=== PATIENT | female | born 1990 | race Caucasian/White ===

== ENCOUNTER 2018-07-11 12:47 | Day surgery (SDC) | payer OTHER ==
[~2018-07-11 12:47] MED LIST: ANCEF/STERILE WATER 2 GM/20 ML 2 GM/20 ML SYRINGE IV NR; LACTATED RINGERS 1,000 ML IV SCH
--- NOTE | 2018-07-11 13:24 | Anesthesia Consultation ---
Anesthesia Consult and Med Hx Date of service: 07/11/18 - Airway Anesthetic Teeth Evaluation: Good (uneven teeth) ROM Head & Neck: Adequate Mental/Hyoid Distance: Adequate Mallampati Class: Class II Intubation Access Assessment: Probably Good - Pre-Operative Health Status ASA Pre-Surgery Classification: ASA2 Proposed Anesthetic Plan: MAC - Central Nervous System Hx Psychiatric Problems: Yes - Gastrointestinal Hx Gastroesophageal Reflux Disease: Yes - Other Systems Hx Alcohol Use: No Hx Substance Use: No Hx Cancer: No
--- NOTE | 2018-07-11 13:24 | Anesthesia Day of Surgery ---
Anesthesia Day of Surgery - Day of Surgery Patient Examined: Yes Patient H&P Reviewed: Yes Patient is NPO: Yes
[2018-07-11] MEDS ORDERED: VERSED ONE ×2 (13:42→14:00)
[2018-07-11] MEDS ORDERED: MARCAINE-EPI 0.5%-1:200,000 INFILTRATI ONE (13:52)
[2018-07-11] MEDS ORDERED: XYLOCAINE 1% 20 mL ONE (13:52)
[2018-07-11] MEDS ORDERED: VERSED IV NR (14:00)
[2018-07-11] MEDS ORDERED: DILAUDID ONE (14:00)
[2018-07-11] MEDS ORDERED: DIPRIVAN 10 MG/ML IV ONE (14:00)
[2018-07-11] MEDS ORDERED: PEPCID IV SCH (14:00)
[2018-07-11] MEDS ORDERED: MARCAINE-EPI/PF 0.5%-1:200,000 INFILTRATI ONE (14:10)
[2018-07-11] MEDS ORDERED: XYLOCAINE 1% 20 mL INFILTRATI ONE (14:10)
[2018-07-11] MEDS ORDERED: XYLOCAINE MPF 2% ONE (14:41)
--- NOTE | 2018-07-11 15:05 | Short Stay Summary ---
Short Stay Documentation Date of service: 07/11/18 - History H&P: obtained from office - Allergies and Medications Current Medications: Allergies No Known Allergies Allergy (Verified 07/10/18 11:19) Home Medications Medication Instructions Recorded Confirmed Last Taken Type No Known Home Medications [No 07/10/18 07/10/18 Unknown History Reported Home Medications] Active Medications Famotidine (Pepcid) 20 mg IV PREOP ALEXIA Stop: 07/11/18 23:00 Last Admin: 07/11/18 13:42 Dose: 20 mg Documented by: Cefazolin Sodium (Ancef/Sterile Water 2 Gm/20 Ml) 2 gm in 20 mls @ 80 mls/hr IV PREOP NR; Protocol Stop: 07/11/18 23:59 Lactated Ringer's (Lactated Ringers) 1,000 mls @ 75 mls/hr IV DIRECT ALEXIA Last Admin: 07/11/18 13:42 Dose: 75 mls/hr Documented by: Midazolam HCl (Versed) 2 mg IV PREOP NR Stop: 07/11/18 23:59 Last Admin: 07/11/18 13:41 Dose: 2 mg Documented by: - Physical exam General appearance: no acute distress Lungs: Normal air movement Neurological: Normal speech - Brief post op/procedure progress note Date of procedure: 07/11/18 (Dictation:[id number]) Pre-op diagnosis: left hip skin mass Post-op diagnosis: same Procedure: Excision of left hip skin mass Anesthesia: MAC Findings: 1x1.2x1.5cm superficial mass - in subcutaneous tissue and attached to dermis. Surgeon: SALO SCHAFER Estimated blood loss: minimal Pathology: list (superficial skin mass) Specimen disposition: to lab Condition: stable - Disposition Condition at discharge: Stable Disposition: DC-01 TO HOME OR SELFCARE Short Stay Discharge Plan Activity: other (no strenuous activity or exercise for 1 week) Diet: regular Wound: open to air, keep clean and dry, other (apply ice pack for 10-15min/4-5 times a day. May shower tomorrow. Pat dry wound.) Special Instructions: no heavy lifting Additional Instructions: NO STRENUOUS ACTIVITY OR EXERCISE FOR ONE WEEK. WOUND:OPEN TO AIR, KEEP CLEAN AND DRY.(APPLY ICE PACK FOR 10-15 MINUTES/4-5 TIMES A A-DAY. MAY SHOWER TOMORROW, PAT DRY WOUND. DO NOT RUB OR SCRUB INCISION. NO BATH, NO POOL OR LAKES. NO HEAVY LIFTING. Follow up with: IVANA COTE MD [Primary Care Provider] - 7 Days SALO SCHAFER MD [Staff Physician] - 14 Days Forms: Outpatient Surgery DC Inst. Prescriptions: HYDROcodone/APAP 5-325 [Concan 5/325] 1 each PO Q6HR PRN #10 tablet PRN Reason: Pain
[2018-07-11 15:32] VITALS: BP 112/61
--- NOTE | 2018-07-11 16:06 | Operative Report ---
PREOPERATIVE DIAGNOSIS: Left hip skin mass. POSTOPERATIVE DIAGNOSIS: Left hip skin mass. PROCEDURE: Excision of left hip skin mass. ATTENDING PHYSICIAN: Randa Hollis MD ANESTHESIA: Local MAC. ESTIMATED BLOOD LOSS: Minimal. FINDINGS: 1 x 1.2 x 1.5 cm skin mass in the subcutaneous tissue that was attached to the overlying dermis. SPECIMEN: The above-mentioned mass. DRAINS: None. COMPLICATIONS: None. DISPOSITION: Stable, transferred to Recovery Room. INDICATIONS: This is a 27-year-old female who presents for evaluation of a relatively new mass in her left hip that was much larger prior to her presentation in the clinic. It does cause her discomfort, but has decreased in size. It was red at one time and now has a more purplish appearance. Patient is worried about the potential that this could be something bad. The patient was assessed to be in need for excision. Procedure, risks, benefits were explained to the patient. Risks included but were not limited to infection, bleeding, pain, injury to surrounding structures, possible need for further procedures in the future. The patient understood and consented. OPERATIVE NOTE: The patient was brought to the operating room and placed on the table in supine position. After adequate sedation was established, the patient was placed in right lateral decubitus position. SCDs were in place. Sterile prep and drape was performed. Timeout was called. Based on the lines of skin tension, I planned an oblique incision to be parallel with the lines of skin tension. We injected the surrounding tissue with 0.5% Marcaine with epinephrine and 1% lidocaine. The skin was carefully incised down to the mass to avoid disruption of the mass. I was able to dissect out around the mass it as I had already marked out the overall orientation of the mass. We were essentially able to remove it intact. There was a small thin layer of what I believe to be a cyst attached to the overlying dermis. This was probably 2 mm at the most in its longest dimension. I cauterized those areas in case it was some portion of the cystic wall. The rest of tissue was completely normal. So no other evidence of any abnormal changes. Specimen was completely excised, measured and passed off table in sterile fashion with good hemostasis in the wound as mentioned any portion of the overlying dermis that appeared to maybe have a thin layer of the cystic wall was cauterized, 3-0 Vicryl was used to close the underlying dermis with interrupted stitches. The skin was closed with 4-0 Monocryl subcuticular stitch. The skin was cleaned and dried. Dermabond was placed. The patient tolerated the procedure well. There were no complications. All counts were correct at the end of the case. JOB# [id number] YOSVANY/THERESE GREGORIO
== END 2018-07-11 16:15 | disposition home or self-care (01) ==
LOC: OR 12:47
PROVIDERS: ATTEND Surgery
DX: L72.0 Epidermal cyst (principal); R22.9 Localized swelling, mass and lump, unspecified; K21.9 Gastro-esophageal reflux disease without esophagitis; F41.9 Anxiety disorder, unspecified; Z79.899 Other long term (current) drug therapy
CPT/HCPCS: 27047; 81025; 88305; J0690; J1170; J2250; J2704; J7120